=== PATIENT | female | born 1935 | race Caucasian/White ===

== ENCOUNTER → 2017-11-16 14:10 | Outpatient (CLI) | payer MEDICARE, SELFPAY ==
--- NOTE | 2017-11-16 14:14 | RAD_ITS ---
STUDY: X-RAY - RIGHT SHOULDER REASON FOR EXAM: Female, 81 years old. Pain TECHNIQUE: 4 view(s) of the shoulder. COMPARISON: None. FINDINGS: Normal glenohumeral articulation. There is degenerative arthrosis of the acromioclavicular joint without inferior osseous spur formation. Normal acromion. Normal humeral head and visualized proximal humerus. The soft tissue structures are unremarkable. Normal visualized pulmonary apex. 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 Electronically Signed: Shannon Hoff MD at 17:49 EDT Tel , Service support ,
--- NOTE | 2017-11-16 14:14 | RAD_ITS ---
STUDY: X-RAY - RIGHT WRIST REASON FOR EXAM: Female, 81 years old. Pain TECHNIQUE: 3 view(s) of the wrist were obtained. COMPARISON: None. FINDINGS: There is demineralization of the radius and ulna. Normal radiocarpal articulation. Normal distal radioulnar articulation. There is demineralization of the carpal bones. Normal carpal articulations. There is degenerative arthrosis of the carpometacarpal articulation of the thumb. Normal second through fifth carpometacarpal articulations. There is demineralization of the metacarpal bones. The soft tissue structures are unremarkable. RAD/Wrist min 3 Views IMPRESSION: Osteopenia. Osteoarthritis first carpometacarpal joint. No visualized fracture. Electronically Signed: Shannon Hoff MD at 17:16 EDT Tel , Service support ,
--- NOTE | 2017-11-16 14:14 | RAD_ITS ---
STUDY: X-RAY - LEFT SHOULDER REASON FOR EXAM: Female, 81 years old. Pain TECHNIQUE: 4 view(s) of the shoulder. COMPARISON: None. FINDINGS: Normal glenohumeral articulation. There is degenerative arthrosis of the acromioclavicular joint without inferior osseous spur formation. Normal acromion. Normal humeral head and visualized proximal humerus. The soft tissue structures are unremarkable. Normal visualized pulmonary apex. RAD/Shoulder min 2 Views IMPRESSION: Mild degenerative change, clavicular joint. Electronically Signed: Shannon Hoff MD at 17:48 EDT Tel , Service support ,
== END ==
PROVIDERS: Family Provider Nurse Practitioner; PCP Nurse Practitioner; Referring Provider Nurse Practitioner; Visit Provider Nurse Practitioner
DX: M25.531 Pain in right wrist (principal); M25.511 Pain in right shoulder; M25.512 Pain in left shoulder
CPT/HCPCS: 73030; 73110

== ENCOUNTER → 2017-12-11 14:54 | Outpatient (CLI) | payer MEDICARE, SELFPAY ==
--- NOTE | 2017-12-11 14:55 | RAD_ITS ---
STUDY: X-RAY - RIGHT SHOULDER REASON FOR EXAM: Shoulder pain. TECHNIQUE: A single axillary view of the shoulder. COMPARISON: None. FINDINGS: Normal glenohumeral articulation. Normal acromion. Normal proximal humerus. Electronically Signed: Charles Lamas MD at 15:06 EDT Tel , Service support , RAD/Shoulder One View
--- NOTE | 2017-12-11 14:55 | RAD_ITS ---
STUDY: X-RAY - LEFT SHOULDER REASON FOR EXAM: Shoulder pain TECHNIQUE: A single axillary view of the shoulder. COMPARISON: None. FINDINGS: Normal glenohumeral articulation. Normal acromion. Normal proximal humerus. Electronically Signed: Charles Lamas MD at 15:05 EDT Tel , Service support , RAD/Shoulder One View
== END ==
PROVIDERS: Family Provider Nurse Practitioner; PCP Nurse Practitioner; Referring Provider Orthopaedic Surgery; Visit Provider Orthopaedic Surgery
DX: M25.511 Pain in right shoulder (principal); M25.512 Pain in left shoulder
CPT/HCPCS: 73020